=== PATIENT | male | born 1930 | race Caucasian/White ===

== ENCOUNTER 2016-09-23 22:14 | Observation (INO) | payer OTHER, MEDICARE ==
--- NOTE | 2016-09-23 22:21 | PDOC ---
History of Present Illness - General Chief Complaint: Syncope/Near Syncope Stated Complaint: SYNCOPE Time Seen by Provider: 09/23/16 22:16 - History of Present Illness Initial Comments: 09/23/16 23:52 85 y male, cytotoxic chemo for pancreatic ca, presents with syncopal episode. While watching football, got up to get food, found himself on carpeted floor. No c/o weakness but no other specific complaints. Denies monte, cp, sob, and pain. No fever/ chills. Has been feeling weak x days, resulted in missed chemo. Decreased PO recently. pmh: htn fhx: non-contrib ROS: reviewed and otherwise neagtve o/e frail head-at neck -nt neck veins flat CTA rrr abd nt/nd no ely tenderness in extremities no edema neuro-A+ox 3. 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; despite hx of malignancy, no symptoms to suggest PE, no LE symptoms of DVT; will check ddimer aggressive fluid rehydration Past History - Past Medical History Allergies/Adverse Reactions: Allergies Allergy/AdvReac Type Severity Reaction Status Date / Time Penicillins Allergy Intermediate rash Verified 11/24/15 11:13 Anemia: No Asthma: No Cancer: No Cardiac Disorders: No CVA: No COPD: No CHF: No Dementia: No Diabetes: No GI Disorders: No Disorders: No HTN: Yes Hypercholesterolemia: No Kidney Stones: Yes Liver Disease: No Seizures: No Thyroid Disease: No - Surgical History Abdominal Surgery: Yes (BILATERAL INGUINAL HERNIA REPAIRED) Appendectomy: No Cardiac Surgery: No Cholecystectomy: No Lung Surgery: No Neurologic Surgery: No Orthopedic Surgery: No - Psycho/Social/Smoking Cessation Hx Anxiety: No Suicidal Ideation: No Smoking History: Never smoked Have you smoked in the past 12 months: No Hx Alcohol Use: Yes Drug/Substance Use Hx: No Substance Use Type: Alcohol Hx Substance Use Treatment: No Heart Score/ECG Review - ECG Intrepretation Comment:: 09/23/16 22:19 sinus at 102, RBBB, PVCs ED Treatment Course - LABORATORY CBC & Chemistry Diagram: 09/23/16 22:20 09/23/16 22:20 *DC/Admit/Observation/Transfer Diagnosis at time of Disposition: Dehydration - Discharge Dispostion Condition at time of disposition: Stable Admit: Yes - Referrals Referrals: Kian Terry MD [Primary Care Provider] -
[2016-09-23] MEDS ORDERED: SODIUM CHLORIDE 2,000 ML IV STA (22:25)
[2016-09-23 22:52] LABS: BASOPHIL 0.1 % (0-2.0); EOSINOPHIL 0.3 % (0-4.5); MCH 31.6 pg (25.7-33.7); MEAN CELL VOLUME 98.5 fl (80-96); MEAN PLT VOLUME 8.9 fl (7.5-11.1); NEUTROPHILS 84.9 % (42.8-82.8); PLATELET COUNT 193 K/MM3 (134-434); RDW 17.4 % (11.9-15.9); WHITE BLOOD COUNT 10.7 K/mm3 (4.0-10.0)
[2016-09-23 22:57] LABS: CPK(DFH) 56 IU/L (38-174)
[2016-09-23 22:59] LABS: ALBUMIN 3.4 g/dl (3.5-5.0); ALK PHOS 82 U/L (32-92); ANION GAP 9 (8-16); BILIRUBIN,TOTAL 1.6 mg/dl (0.2-1.0); CALCIUM 9.4 mg/dl (8.4-10.2); CO2 31 mmol/L (22-28); CREATININE 0.7 mg/dl (0.6-1.3); GLUCOSE,RANDOM 164 mg/dl (74-106); PHOSPHOROUS 3.5 mg/dl (2.5-4.6); SGOT/AST 38 U/L (10-42); SGPT/ALT 33 U/L (10-40); TOT PROT 5.4 g/dl (6.4-8.3)
[2016-09-23 23:11] LABS: TROPONIN I (DFP) < 0.03 ng/ml (0.03-0.50)
[2016-09-23] MEDS ORDERED: SODIUM CHLORIDE 1,000 ML IV SCH (23:30)
[2016-09-24 00:28] LABS: URINE APPEARANCE CLEAR; URINE BILIRUBIN NEGATIVE (NEGATIVE); URINE BLOOD NEGATIVE (NEGATIVE); URINE COLOR YELLOW; URINE GLUCOSE (UA) NEGATIVE (NEGATIVE); URINE KETONE TRACE (NEGATIVE); URINE LEUK ESTERASE NEGATIVE (NEGATIVE); URINE NITRITE NEGATIVE (NEGATIVE); URINE PROTEIN NEGATIVE (NEGATIVE); URINE UROBILINOGEN NEGATIVE E.U./dl (0.2-1.0)
[2016-09-24 00:56] VITALS: BMI 13.8
--- NOTE | 2016-09-24 07:36 | HP ---
CHIEF COMPLAINT: PCP: Dr Williamson Oncologist: Dr Terry HISTORY OF PRESENT ILLNESS: patient is a 85-year-old male, with a past medical history of pancreatic cancer, undergoing chemotherapy ([facility]) and hypertension. Patient reports generalized weakness for the past several months. Patient also reports feeling of bloating for the past week with decreased appetite. He reports missing his last dose of chemotherapy last week due to ongoing weakness and has a scheduled chemotherapy session for 09/25/2016. Patient reports that yesterday ( 09/23/16) he watching the football game in the evening and began to ambulate. He reports walking in his home and then awakening on the carpeted floor patient denies any headache.He reports not being able to recall a full incident and details. As a result he contacted his son who was brought to the emergency department for further evaluation. ER course was notable for: (1) EKG, sinus tachycardia right bundle branch block with PVCs (2) chest x-ray, no infilitrate no effusion noted (3)CT of head, no acute pathology (4) CTA of chest, subacute fractures of fifth and eighth ribs no pleural no pericardial effusion no PE Recent Travel:none PAST MEDICAL HISTORY:pancreatic CA hypertension PAST SURGICAL HISTORY: bilateral inguinal hernia repairs Social History:resides at home alone Smoking: none Alcohol:none Drugs: none Family History: father [place] brother [place], alive mother respiratory failure Allergies Penicillins Allergy (Intermediate, Verified 11/24/15 11:13) rash HOME MEDICATIONS: REVIEW OF SYSTEMS CONSTITUTIONAL: Present: place weakness, loss of appetite, weight loss Absent: fever, chills, diaphoresis, malaise, HEENT: Absent: rhinorrhea, nasal congestion, throat pain, throat swelling, difficulty swallowing, mouth swelling, ear pain, eye pain, visual changes CARDIOVASCULAR: Absent: chest pain, syncope, palpitations, irregular heart rate, lightheadedness , peripheral edema RESPIRATORY: Absent: cough, shortness of breath, dyspnea with exertion, orthopnea, wheezing, stridor, hemoptysis GASTROINTESTINAL: present: abdominal bloating Absent: abdominal pain, abdominal distension, nausea, vomiting, diarrhea, constipation, melena, hematochezia GENITOURINARY: Absent: dysuria, frequency, urgency, hesitancy, hematuria, flank pain, genital pain MUSCULOSKELETAL: Absent: myalgia, arthralgia, joint swelling, back pain, neck pain SKIN: Absent: rash, itching, pallor HEMATOLOGIC/IMMUNOLOGIC: Absent: easy bleeding, easy bruising, lymphadenopathy, frequent infections ENDOCRINE: Absent: unexplained weight gain, unexplained weight loss, heat intolerance, cold intolerance NEUROLOGIC: Absent: headache, focal weakness or paresthesias, dizziness, unsteady gait, seizure, mental status changes, bladder or bowel incontinence PSYCHIATRIC: Absent: anxiety, depression, suicidal or homicidal ideation, hallucinations. PHYSICAL EXAMINATION Vital Signs - 24 hr 09/24/16 09/24/16 00:40 06:00 Temperature 98.3 F 98.9 F Pulse Rate 18 L 19 L Respiratory 101 H 98 H Rate Blood Pressure 139/89 120/76 O2 Sat by Pulse 98 100 Oximetry (%) GENERAL: Awake, alert, and fully oriented, cachectic frail-appearing. HEAD: Normal with no signs of trauma. EYES: Pupils equal, round and reactive to light, extraocular movements intact, sclera anicteric, conjunctiva clear. No lid lag. EARS, NOSE, THROAT: Ears normal, nares patent, oropharynx clear without exudates. dry mucous membranes. NECK: Normal range of motion, supple without lymphadenopathy, JVD, or masses. LUNGS: Breath sounds equal, clear to auscultation bilaterally. No wheezes, and no crackles. No accessory muscle use. HEART: Regular rate and rhythm, normal S1 and S2 without murmur, rub or gallop. ABDOMEN: Soft, nontender, not distended, normoactive bowel sounds, no guarding, no rebound, no masses. + hepatomegaly. no splenomegaly. MUSCULOSKELETAL: Normal range of motion at all joints. No bony deformities or tenderness. No CVA tenderness. UPPER EXTREMITIES: 2+ pulses, warm, well-perfused. No cyanosis. No clubbing. Cap refill <2 seconds. No peripheral edema. LOWER EXTREMITIES: 2+ pulses, warm, well-perfused. No calf tenderness. No peripheral edema. NEUROLOGICAL: Cranial nerves II-XII intact. Normal speech. Normal gait. PSYCHIATRIC: Cooperative. Good eye contact. Appropriate mood and affect. SKIN: Warm, dry, normal turgor, no rashes or lesions noted. Laboratory Results - last 24 hr 09/24/16 00:30 D-Dimer > 5000 H ASSESSMENT/PLAN: 1) card: syncopal episode - continuous cardiac monitoring - pending ECHO and carotid doppler - orthostatic vital signs hypertension - continue ramipril - b/p well controlled 2) hem/onc pancreatic carcinoma - prn pain medication - appreciate oncology input F/E/N - regular diet, ensure - pt appear dehydrated on exam, gentle IVF - dietary consult ppx - lovenox - zantac - scd/delonte - pt dispo: requires telemetry observation full code Problem List - Problem (1) Pancreatic cancer Code(s): C25.9 - MALIGNANT NEOPLASM OF PANCREAS, UNSPECIFIED (2) Dehydration Code(s): E86.0 - DEHYDRATION (3) Syncope Code(s): R55 - SYNCOPE AND COLLAPSE (4) Hypertension Code(s): I10 - ESSENTIAL (PRIMARY) HYPERTENSION Visit type - Emergency Visit Emergency Visit: Yes ED Registration Date: 09/24/16 Care time: The patient presented to the Emergency Department on the above date and was hospitalized for further evaluation of their emergent condition. - New Patient This patient is new to me today: Yes Date on this admission: 09/24/16 - Critical Care Critical Care patient: No
[2016-09-24] MEDS ORDERED: ACETAMINOPHEN 325 MG TABLET (FP) PO PRN (08:55)
[2016-09-24 10:08] LABS: MCH 32.3 pg (25.7-33.7); MCHC 32.8 g/dl (32.0-35.9); MEAN CELL VOLUME 98.5 fl (80-96); MEAN PLT VOLUME 9.4 fl (7.5-11.1); PLATELET COUNT 148 K/MM3 (134-434); RDW 17.1 % (11.9-15.9); WHITE BLOOD COUNT 8.7 K/mm3 (4.0-10.0)
[2016-09-24] MEDS: RANITIDINE HCL 150 MG TABLET (FP) PO SCH (10:12)
[2016-09-24] MEDS: ENOXAPARIN NA (PORCINE) 40 MG/0.4 ML DISP.SYRIN SQ SCH (10:12)
[2016-09-24 10:13] LABS: CALCIUM 8.6 mg/dl (8.4-10.2); CREATININE 0.5 mg/dl (0.6-1.3)
--- NOTE | 2016-09-24 10:15 | EKG ---
Test Reason : Blood Pressure : / mmHG Vent. Rate : 102 BPM Atrial Rate : 102 BPM P-R Int : 116 ms QRS Dur : 128 ms QT Int : 380 ms P-R-T Axes : 063 077 070 degrees QTc Int : 495 ms SINUS TACHYCARDIA with PREMATURE VENTRICULAR COMPLEXES and fusion complex RIGHT BUNDLE BRANCH BLOCK ABNORMAL ECG NO PREVIOUS ECGS AVAILABLE Confirmed by MELVIN PANIAGUA MD ([id number]) on 09/24/2016 10:15:14 AM Referred By: WILFRID SANTAMARIA Confirmed By:MELVIN PANIAGUA MD
[2016-09-24] MEDS ORDERED: D5-NS + 20 MEQ KCL - 1,000 ML IV SCH (10:45)
[2016-09-24] MEDS ORDERED: POTASSIUM CHLORIDE TABS 20 MEQ TABLET.ER (FP) PO ONE (11:00)
[2016-09-24 11:01] LABS: TROPONIN I 0.02 ng/ml (0.00-0.05)
--- NOTE | 2016-09-24 16:19 | CONSULT ---
Consult Consult Specialty:: onc Reason for Consultation:: panc cancer - History of Present Illness Chief Complaint: passed out History of Present Illness: [address] Harrison leung loc adv panc cancer. Ongoing second line tx w gemcitabine, last rec'd 2 w ago. Starting 2d post-tx, he developed fullness/ bloating sensation which has prohibited eating. He feels nauseas, but has not vomited. He is moving bowels. He reports generalized weakness, siobhan hands having no power. He got up during superbowl half time last nite to have soup and subsequently fell and doesn't recall any events in btw. Denies any recent fever - History Source History Provided By: Patient, Family Member, Medical Record Limitations to Obtaining History: No Limitations - Past Medical History Cardio/Vascular: Yes: HTN - Alcohol/Substance Use Hx Alcohol Use: Yes - Smoking History Smoking history: Never smoked Have you smoked in the past 12 months: No Home Medications - Allergies Allergies/Adverse Reactions: Allergies Allergy/AdvReac Type Severity Reaction Status Date / Time Penicillins Allergy Intermediate rash Verified 11/24/15 11:13 Review of Systems - Review of Systems Constitutional: reports: Unintentional Wgt. Loss, Weakness Cardiovascular: reports: Other (few brief episodes of central CP) Gastrointestinal: reports: Bloating, Nausea Physical Exam Vital Signs: Vital Signs Temperature 98.7 F 09/24/16 14:42 Pulse Rate 102 H 09/24/16 14:42 Respiratory Rate 20 09/24/16 14:42 Blood Pressure 141/81 09/24/16 14:42 O2 Sat by Pulse Oximetry (%) 100 09/24/16 07:55 Constitutional: Yes: Calm, Thin Eyes: Yes: Conjunctiva Clear HENT: Yes: Other (dry MMM no mucositis) Neck: Yes: WNL Cardiovascular: Yes: Regular Rate and Rhythm Respiratory: Yes: CTA Bilaterally Gastrointestinal: Yes: Soft, Other (no appreciable distension) Edema: No Integumentary: Yes: Other (dry) Labs: CBC, BMP 09/24/16 08:56 09/24/16 08:56 Assessment/Plan loc adv pancreatic cancer syncopal event likely related to dehydration. IVF/Cardio/neuro w/u in the works. new sxs of abd bloating and nausea. Likely element of compression from tumor. Would ask Dr. Valentin to eval. May require further endoscopic eval at [facility]
--- NOTE | 2016-09-24 16:46 | PN ---
Progress Note (short form) - Note Progress Note: Patient seen and consult dictated. Patient with known locally advanced pancreatic cancer and progressive c/o of upper abdominal bloating and decreased PO intake (with 10lb weight loss x 2 weeks). Suspect has compression of distal stomach/prox duodenum due to tumor. Lack of vomiting suggests against a total obstruction. Discussed with Dr. Bradshaw and would obtain either CT abdomen or Gastrograffin UGI study to evaluate for compression; may need to consider for stenting if localized area of narrowing/compression identified.
--- NOTE | 2016-09-25 08:31 | PN ---
Physical Exam: SUBJECTIVE: Patient seen and examined, patient reports feeling well, reports ongoing sensation of feeling bloated. Patient denies any abdominal pain, nausea or shortness of breath OBJECTIVE:patient is a 85-year-old male, with a past medical history of pancreatic cancer, undergoing chemotherapy (Harrison) and hypertension. patient was admitted to observation for the emergency Department for syncopal episode. Vital Signs Period Temp Pulse Resp BP Sys/Reno Pulse Ox Last 24 Hr 97.9 F-98.7 F 97-102 17-20 141-148/77-81 96-100 physical examination GENERAL: Awake, alert, and fully oriented, cachectic frail-appearing. HEAD: Normal with no signs of trauma. EYES: Pupils equal, round and reactive to light, extraocular movements intact, sclera anicteric, conjunctiva clear. No lid lag. EARS, NOSE, THROAT: Ears normal, nares patent, oropharynx clear without exudates. moist mucous membranes. NECK: Normal range of motion, supple without lymphadenopathy, JVD, or masses. LUNGS: Breath sounds equal, clear to auscultation bilaterally. No wheezes, and no crackles. No accessory muscle use. HEART: Regular rate and rhythm, normal S1 and S2 without murmur, rub or gallop. ABDOMEN: Soft, nontender, not distended, normoactive bowel sounds, no guarding, no rebound, no masses. + hepatomegaly. no splenomegaly. MUSCULOSKELETAL: Normal range of motion at all joints. No bony deformities or tenderness. No CVA tenderness. UPPER EXTREMITIES: 2+ pulses, warm, well-perfused. No cyanosis. No clubbing. Cap refill <2 seconds. No peripheral edema. LOWER EXTREMITIES: 2+ pulses, warm, well-perfused. No calf tenderness. No peripheral edema. NEUROLOGICAL: Cranial nerves II-XII intact. Normal speech. Normal gait. PSYCHIATRIC: Cooperative. Good eye contact. Appropriate mood and affect. SKIN: Warm, dry, normal turgor, no rashes or lesions noted. Laboratory Results - last 24 hr CBC WBC 8.7 K/mm3 (4.0-10.0) 09/24/16 08:56 RBC 4.23 M/mm3 (4.00-5.60) 09/24/16 08:56 Hgb 13.7 GM/dl (11.7-16.9) D 09/24/16 08:56 Hct 41.6 % (35.4-49) 09/24/16 08:56 MCV 98.5 fl (80-96) H 09/24/16 08:56 MCHC 32.8 g/dl (32.0-35.9) 09/24/16 08:56 RDW 17.1 % (11.9-15.9) H 09/24/16 08:56 Plt Count 148 K/MM3 (134-434) D 09/24/16 08:56 MPV 9.4 fl (7.5-11.1) 09/24/16 08:56 Neutrophils % 84.9 % (42.8-82.8) H 09/23/16 22:20 Lymphocytes % 7.2 % (8-40) L D 09/23/16 22:20 Monocytes % 7.5 % (3.8-10.2) 09/23/16 22:20 Eosinophils % 0.3 % (0-4.5) 09/23/16 22:20 Basophils % 0.1 % (0-2.0) 09/23/16 22:20 CMP Sodium 139 mmol/L (136-145) 09/24/16 08:56 Potassium 3.4 mmol/L (3.5-5.1) L 09/24/16 08:56 Chloride 103 mmol/L (98-107) 09/24/16 08:56 Carbon Dioxide 27 mmol/L (22-28) 09/24/16 08:56 Anion Gap 9 (8-16) 09/24/16 08:56 BUN 10 mg/dl (7-18) D 09/24/16 08:56 Creatinine 0.5 mg/dl (0.6-1.3) L D 09/24/16 08:56 Creat Clearance w eGFR > 60 (>60) 09/23/16 22:20 Random Glucose 154 mg/dl (74-106) H 09/24/16 08:56 Lactic Acid 1.424 mmol/L (0.4-2.0) 09/23/16 22:59 Calcium 8.6 mg/dl (8.4-10.2) 09/24/16 08:56 Phosphorus 3.5 mg/dl (2.5-4.6) 09/23/16 22:20 Magnesium 1.9 mg/dL (1.8-2.4) 09/24/16 08:56 Total Bilirubin 1.6 mg/dl (0.2-1.0) H D 09/23/16 22:20 AST 38 U/L (10-42) D 09/23/16 22:20 ALT 33 U/L (10-40) D 09/23/16 22:20 Alkaline Phosphatase 82 U/L (32-92) D 09/23/16 22:20 Creatine Kinase 56 IU/L (38-174) 09/23/16 22:20 Troponin I 0.03 ng/ml (0.00-0.05) D 09/24/16 15:20 Total Protein 5.4 g/dl (6.4-8.3) L D 09/23/16 22:20 Albumin 3.4 g/dl (3.5-5.0) L D 09/23/16 22:20 Active Medications Generic Name Dose Route Start Last Admin Trade Name Freq PRN Reason Stop Dose Admin Acetaminophen 650 mg 09/24/16 08:55 Tylenol - PO Q4H PRN FEVER OR PAIN Enoxaparin Sodium 40 mg 09/24/16 10:00 09/24/16 10:12 Lovenox - SQ 40 mg DAILY DEBBI Administration Ranitidine HCl 150 mg 09/24/16 10:00 09/24/16 10:12 Zantac - PO 150 mg DAILY DEBBI Administration Microbiology 09/23/16 23:56 Urine - Urine Clean Catch Urine Culture - Final NO GROWTH OBTAINED 09/23/16 22:20 Blood - Peripheral Venous Blood Culture - Preliminary NO GROWTH OBTAINED AFTER 24 HOURS, INCUBATION TO CONTINUE FOR 4 DAYS. 09/23/16 22:20 Blood - Peripheral Venous Blood Culture - Preliminary NO GROWTH OBTAINED AFTER 24 HOURS, INCUBATION TO CONTINUE FOR 4 DAYS. IMAGING ECHO: LVEF 55-60% grade 1 diastolic dysfunction moderate AR severe TR EKG, sinus tachycardia right bundle branch block with PVCs chest x-ray, no infilitrate no effusion noted CT of head, no acute pathology CTA of chest, subacute fractures of fifth and eighth ribs no pleural no pericardial effusion no PE ASSESSMENT/PLAN: 1) card: syncopal episode likely secondary to dehydration - continuous cardiac monitoring no dysrhythmias noted hypertension - continue ramipril - b/p well controlled 2) hem/onc pancreatic carcinoma - CT scan of abdomen and pelvis large pancreatic mass with large gastrohepatic ligament lymph nodes unchanged from prior CT scan 06/29/2016 no evidence of bowel obstruction, new compression fracture T11 - GI ([facility]) consulted and followed - prn pain medication - oncology consulted and followed F/E/N - regular diet, ensure, prostat - dietary consult ppx - lovenox - zantac - scd/delonte - pt dispo: requires telemetry observation full code Problem List - Problems (1) Pancreatic cancer Code(s): C25.9 - MALIGNANT NEOPLASM OF PANCREAS, UNSPECIFIED (2) Dehydration Code(s): E86.0 - DEHYDRATION (3) Syncope Code(s): R55 - SYNCOPE AND COLLAPSE (4) Hypertension Code(s): I10 - ESSENTIAL (PRIMARY) HYPERTENSION Visit type - Emergency Visit Emergency Visit: Yes ED Registration Date: 09/23/16 Care time: The patient presented to the Emergency Department on the above date and was hospitalized for further evaluation of their emergent condition. - New Patient This patient is new to me today: No - Critical Care Critical Care patient: No - Discharge Referral Referred to [facility] Med P.C.: Yes Physician Referral: Demetri Williamson MD (Int Med)
--- NOTE | 2016-09-25 09:49 | CONS ---
DATE OF CONSULTATION: 09/24/2016 REASON FOR CONSULTATION: I was asked by Dr. Bradshaw and Dr. Terry to evaluate this 86-year-old gentleman with abdominal bloating and decreased p.o. intake. HISTORY OF PRESENT ILLNESS: The patient is an 86-year-old gentleman with locally advanced pancreatic cancer under the care of Dr. Terry. The patient also has a history of hypertension. He has been undergoing treatment with chemotherapy with his last treatment 2 weeks ago. He has had decreased p.o. intake over the past 7-10 days due to a feeling of bloating and fullness. He also states he has lost approximately 10 pounds during this time. On the day of admission, he got up from a chair and subsequently fell and was ultimately admitted to the hospital. He likely had an episode of orthostatic hypotension due to dehydration and poor p.o. intake. His admission laboratory tests included a white count of 8.7, hemoglobin of 13.7, with a BUN of 10 and creatinine of 0.5. The patient is now admitted to the hospital on IV fluids and states that he is unable to tolerate much p.o. including liquids or Ensure due to a feeling of fullness and bloating. A preliminary look at the limited abdominal flat plate suggests that he may have some extra air, a distended stomach consistent with partial or full gastric outlet obstruction. He is not having any vomiting, but does remain moderately bloated. He denies any abdominal pain. EXAMINATION: General: He is a well--developed, thin, elderly, ill-appearing gentleman. HEENT: [employer] conjunctiva. Lungs: Grossly clear. Cardiac: Regular rate and rhythm. . Abdomen: Soft. Bowel sounds are present. There is no tenderness. LABORATORY TESTS: Are as above. White count currently 8.7, hemoglobin 13.7, hematocrit 41.6. Chemistries include normal electrolytes with an alkaline phosphatase of 82, AST 38, ALT 33, bilirubin 1.6. IMPRESSION: Patient most likely with progression of pancreatic cancer with a mass pressing on the stomach or immediately post-pyloric region causing partial or near complete gastric outlet obstruction. Patient is unable to tolerate much orally, although unlikely he is totally obstructed due to his having nausea, but no vomiting. I have encouraged the patient to continue to take limited p.o. as tolerated and would suggest either a Gastrografin upper GI series or CT scan to evaluate the proximal GI tract and evaluate for obstruction/compression. If he is noted to have an area of limited narrowing, a stent might be able to be placed to afford him some relief. I discussed with Dr. Bradshaw and will follow as needed. LORENZA BLOOM M.D. [id number]
[2016-09-25] MEDS: RANITIDINE HCL 150 MG TABLET (FP) PO SCH (10:00)
[2016-09-25] MEDS ORDERED: D5-1/2NS+20 MEQ KCL - 1,000 ML IV SCH (14:00)
[2016-09-25] MEDS: ENOXAPARIN NA (PORCINE) 40 MG/0.4 ML DISP.SYRIN SQ SCH (16:29)
[2016-09-25] MEDS: AMINO ACIDS/PROTEIN HYDROLYS SUGAR-FREE 30 ML PACKET PO SCH (19:44)
[2016-09-26 08:18] LABS: BASOPHIL 0.3 % (0-2.0); EOSINOPHIL 0.6 % (0-4.5); MCH 31.7 pg (25.7-33.7); MCHC 31.8 g/dl (32.0-35.9); MEAN CELL VOLUME 99.5 fl (80-96); MEAN PLT VOLUME 8.9 fl (7.5-11.1); NEUTROPHILS 74.7 % (42.8-82.8); PLATELET COUNT 132 K/MM3 (134-434); RDW 16.8 % (11.9-15.9); WHITE BLOOD COUNT 8.6 K/mm3 (4.0-10.0)
[2016-09-26] MEDS: AMINO ACIDS/PROTEIN HYDROLYS SUGAR-FREE 30 ML PACKET PO SCH ×2 (08:27→17:27)
[2016-09-26 08:41] LABS: ALBUMIN 2.7 g/dl (3.5-5.0); ALK PHOS 69 U/L (32-92); ANION GAP 6 (8-16); BILIRUBIN,TOTAL 0.9 mg/dl (0.2-1.0); CALCIUM 8.7 mg/dl (8.4-10.2); CO2 28 mmol/L (22-28); CREATININE 0.5 mg/dl (0.6-1.3); GLUCOSE,RANDOM 184 mg/dl (74-106); MAGNESIUM 1.8 mg/dL (1.8-2.4); PHOSPHOROUS 2.2 mg/dl (2.5-4.6); SGOT/AST 21 U/L (10-42); SGPT/ALT 31 U/L (10-40); TOT PROT 4.6 g/dl (6.4-8.3)
[2016-09-26] MEDS ORDERED: METOCLOPRAMIDE HCL INJECTION 10 MG/2 ML VIAL IVPB SCH ×2 (09:30→18:00)
[2016-09-26] MEDS ORDERED: POTASSIUM PHOSPHATE 15 MM in SODIUM CHLORIDE 250 ML IVPB ONE (09:30)
[2016-09-26] MEDS: RANITIDINE HCL 150 MG TABLET (FP) PO SCH (09:42)
[2016-09-26] MEDS: ENOXAPARIN NA (PORCINE) 40 MG/0.4 ML DISP.SYRIN SQ SCH (09:42)
--- NOTE | 2016-09-26 10:44 | PN ---
Progress Note (short form) - Note Progress Note: CT scan and prior AXR reviewed and appear to show a dilated stomach - c/w partial or delayed gastric emptying. This is most likely due to extrinsic compression from pancreatic tumor/LN. Discussed with Dr Terry and patient. Will try Reglan as a promotility agent but if still symptomatic, may need to consider for endoscopic stent (Dr. Devendra Dhillon at [facility]).
--- NOTE | 2016-09-26 13:26 | PN ---
Progress Note (short form) - Note Progress Note: patient evaluated by by me complaining of early satiety nausea no vomiting. Weight loss continues secondary to poor by mouth intake. CAT scan is negative for gastric outlet obstruction but there is increased air in the stomach pancreatic mass is stable. Abdominal exam was benign. Discussed with patient and family at length my feeling is that patient most likely has obstructive process causing his symptoms possible nerve infiltration by tumor or direct extension into the GI tract by the pancreatic cancer. patient unable to receive more chemotherapy of present secondary to cachexia weight loss weakness. We'll transferred to monitor hospital for evaluation including and possible stent replacement
--- NOTE | 2016-09-26 13:33 | PN ---
[id number]: patient is a 85-year-old male, with a past medical history of pancreatic cancer, undergoing chemotherapy ([facility]) and hypertension. patient was admitted to observation for the emergency Department for syncopal episode. Vital Signs Period Temp Pulse Resp BP Sys/Reno Pulse Ox Last 24 Hr 97.5 F-98.2 F 54-97 17-20 122-133/75-91 95-97 physical examination GENERAL: Awake, alert, and fully oriented, cachectic frail-appearing. HEAD: Normal with no signs of trauma. EYES: Pupils equal, round and reactive to light, extraocular movements intact, sclera anicteric, conjunctiva clear. No lid lag. EARS, NOSE, THROAT: Ears normal, nares patent, oropharynx clear without exudates. moist mucous membranes. NECK: Normal range of motion, supple without lymphadenopathy, JVD, or masses. LUNGS: Breath sounds equal, clear to auscultation bilaterally. No wheezes, and no crackles. No accessory muscle use. HEART: Regular rate and rhythm, normal S1 and S2 without murmur, rub or gallop. ABDOMEN: Soft, nontender, not distended, normoactive bowel sounds, no guarding, no rebound, no masses. + hepatomegaly. no splenomegaly. MUSCULOSKELETAL: Normal range of motion at all joints. No bony deformities or tenderness. No CVA tenderness. UPPER EXTREMITIES: 2+ pulses, warm, well-perfused. No cyanosis. No clubbing. Cap refill <2 seconds. No peripheral edema. LOWER EXTREMITIES: 2+ pulses, warm, well-perfused. No calf tenderness. No peripheral edema. NEUROLOGICAL: Cranial nerves II-XII intact. Normal speech. Normal gait. PSYCHIATRIC: Cooperative. Good eye contact. Appropriate mood and affect. SKIN: Warm, dry, normal turgor, no rashes or lesions noted. Laboratory Results - last 24 hr 09/26/16 09/26/16 07:30 07:30 WBC 8.6 RBC 4.37 Hgb 13.9 Hct 43.5 MCV 99.5 H MCHC 31.8 L RDW 16.8 H Plt Count 132 L MPV 8.9 Neutrophils % 74.7 Lymphocytes % 12.4 D Monocytes % 12.0 H Eosinophils % 0.6 D Basophils % 0.3 Sodium 137 Potassium 3.8 Chloride 103 Carbon Dioxide 28 Anion Gap 6 L BUN 7 D Creatinine 0.5 L Creat Clearance w eGFR > 60 Random Glucose 184 H Calcium 8.7 Phosphorus 2.2 L D Magnesium 1.8 Total Bilirubin 0.9 D AST 21 D ALT 31 Alkaline Phosphatase 69 Total Protein 4.6 L Albumin 2.7 L D Active Medications Generic Name Dose Route Start Last Admin Trade Name Freq PRN Reason Stop Dose Admin Acetaminophen 650 mg 09/24/16 08:55 Tylenol - PO Q4H PRN FEVER OR PAIN Amino Acids 30 ml 09/25/16 17:30 09/26/16 08:27 Prostat Sugar-Free Packet - PO 30 ml BID@0800,1730 DEBBI Administration Enoxaparin Sodium 40 mg 09/24/16 10:00 09/26/16 09:42 Lovenox - SQ 40 mg DAILY DEBBI Administration Potassium Phosphate 15 mm/ 255 mls @ 50.164 mls/hr 09/26/16 09:30 09/26/16 09: 43 Sodium Chloride IVPB 09/26/16 14:34 50.164 mls/hr ONCE ONE Administration Metoclopramide HCl 10 mg 09/26/16 18:00 Reglan Injection - IVPB Q8H-IV DEBBI Ranitidine HCl 150 mg 09/24/16 10:00 09/26/16 09:42 Zantac - PO 150 mg DAILY DEBBI Administration Microbiology 09/23/16 22:20 Blood - Peripheral Venous Blood Culture - Preliminary NO GROWTH OBTAINED AFTER 48 HOURS, INCUBATION TO CONTINUE FOR 3 DAYS. 09/23/16 22:20 Blood - Peripheral Venous Blood Culture - Preliminary NO GROWTH OBTAINED AFTER 48 HOURS, INCUBATION TO CONTINUE FOR 3 DAYS. 09/23/16 23:56 Urine - Urine Clean Catch Urine Culture - Final NO GROWTH OBTAINED IMAGING ECHO: LVEF 55-60% grade 1 diastolic dysfunction moderate AR severe TR EKG, sinus tachycardia right bundle branch block with PVCs chest x-ray, no infilitrate no effusion noted CT of head, no acute pathology CTA of chest, subacute fractures of fifth and eighth ribs no pleural no pericardial effusion no PE CT scan of abdomen and pelvis large pancreatic mass with large gastrohepatic ligament lymph nodes unchanged from prior CT scan 06/29/2016 no evidence of bowel obstruction, new compression fracture T11 ASSESSMENT/PLAN: 1) card: syncopal episode likely secondary to dehydration - continuous cardiac monitoring no dysrhythmias noted hypertension - continue ramipril - b/p well controlled 2) hem/onc pancreatic carcinoma - start Reglan 10mg IV 3 times a day - case discussed with oncologist Dr. Terry and mold clamper Dr. Valentin, mechanism of bloating likely secondary to pancreatic tumor causing partial obstruction, patient may require stenting, patient will require further management at [facility], transfer center contacted Dr. Terry is accepting physician, patient is awaiting a bed - GI ([facility]) consulted and followed - prn pain medication - oncology consulted and followed F/E/N - regular soft diet, ensure, prostat - dietary consult ppx - lovenox - zantac - scd/delonte - pt dispo: requires telemetry observation-->transfer to [facility] oncology, awaiting bed assignment full code Problem List - Problems (1) Pancreatic cancer Code(s): C25.9 - MALIGNANT NEOPLASM OF PANCREAS, UNSPECIFIED (2) Dehydration Code(s): E86.0 - DEHYDRATION (3) Syncope Code(s): R55 - SYNCOPE AND COLLAPSE (4) Hypertension Code(s): I10 - ESSENTIAL (PRIMARY) HYPERTENSION Visit type - Emergency Visit Emergency Visit: Yes ED Registration Date: 09/23/16 Care time: The patient presented to the Emergency Department on the above date and was hospitalized for further evaluation of their emergent condition. - New Patient This patient is new to me today: No - Critical Care Critical Care patient: No - Discharge Referral Referred to [facility] Med P.C.: No
[2016-09-26] MEDS ORDERED: D5-1/2NS+20 MEQ KCL - 1,000 ML IV SCH (14:15)
[2016-09-26 17:33] VITALS: BP 129/72; PULSE 92; TEMP 98.1
== END 2016-09-26 19:30 | disposition short-term general hospital (02) ==
LOC: FER 22:14 → FM/S 23:23 → UNDOADMOB 09-24 00:10
PROVIDERS: ADMIT Internal Medicine; ATTEND Nurse Practitioner Family
DX: E86.0 Dehydration (principal); R55 Syncope and collapse; I10 Essential (primary) hypertension; C25.7 Malignant neoplasm of other parts of pancreas; I45.19 Other right bundle-branch block; Z88.0 Allergy status to penicillin
CPT/HCPCS: 36415; 70450-TC; 71010-TC; 71275-TC; 74020-TC; 74177-TC; 80048; 80053; 81003; 82550; 83605; 83735; 84100; 84484; 85025; 85027; 85379; 87040; 87086; 93005; 93306-TC; 93880-TC; 97116-GP; 97162-PG; 99283-25; G0378